=== PATIENT | female | born 1970 | race American Indian/Alaskan Native ===

== ENCOUNTER 2017-03-18 08:09 | Outpatient (CLI) | payer BC ==
--- NOTE | 2017-03-18 10:02 | Mammography Report ---
BILATERAL DIGITAL SCREENING MAMMOGRAM with CAD: 03/18/17 08:09:00 CLINICAL: Routine screening. COMPARISON:03/17/16 and 12/25/14 FINDINGS: The breasts are almost entirely fatty. No mass, architectural distortion or suspicious calcifications. IMPRESSION: No mammographic evidence of malignancy. BI-RADS CATEGORY: 2 -- Benign RECOMMENDATION: Routine mammographic screening in one year. COMMENT: Patient follow-up letters are generated by our [employer] application.
== END 2017-03-18 08:10 | disposition home or self-care (01) ==
LOC: SPVWC 08:09
PROVIDERS: ATTEND Internal Medicine
DX: Z12.31 Encounter for screening mammogram for malignant neoplasm of breast (principal)
CPT/HCPCS: 77067; G0202

== ENCOUNTER 2019-04-17 10:19 | Outpatient (CLI) | payer BC ==
--- NOTE | 2019-04-17 10:53 | Mammography Report ---
DIGITAL SCREENING MAMMOGRAM WITH CAD, 04/17/2019 INDICATION: Routine screening mammography. TECHNIQUE: Digital bilateral 2D mammography was obtained in the craniocaudal and mediolateral obliq ue projections. This examination was interpreted with the benefit of Computer-Aided Detection analysi s. COMPARISON: 03/29/2018 FINDINGS: Breast Density: There are scattered areas of fibroglandular density. There is no evidence of dominant mass, suspicious calcifications or architectural distortion in eithe r breast. IMPRESSION: No mammographic evidence of malignancy. Follow up recommendation: Routine yearly BI-RADS Category 1: Negative. A "normal" or negative report should not discourage follow up or biopsy of a clinically significant f inding. A written summary of these findings will be mailed to the patient. The patient will be entered into a mammography reporting system which will generate a reminder letter for the patient's next appointmen t at the appropriate interval. The [employer] recommends yearly mammograms starting at age 40 and continuing as l vanita as a woman is in good health. Breast MRI is recommended for women with an approximate 20-25% or greater lifetime risk of breast cancer, including women with a strong family history of breast or ova asael cancer or who have been treated for Hodgkin's disease. Signer Name: Brett Lebron MD Signed: 04/17/2019 10:49 AM Workstation Name: [id number]
== END 2019-04-17 10:20 | disposition home or self-care (01) ==
LOC: SPVWC 10:19
PROVIDERS: ATTEND Surgery
DX: Z12.31 Encounter for screening mammogram for malignant neoplasm of breast (principal)
CPT/HCPCS: 77067

== ENCOUNTER 2020-04-18 08:19 | Outpatient (CLI) | payer BC ==
--- NOTE | 2020-04-18 11:25 | Mammography Report ---
DIGITAL SCREENING MAMMOGRAM WITH CAD, 04/18/2020 INDICATION: Routine screening mammography. TECHNIQUE: Digital bilateral 2D mammography was obtained in the craniocaudal and mediolateral obliq ue projections. This examination was interpreted with the benefit of Computer-Aided Detection analysi s. COMPARISON: 04/17/2019. FINDINGS: Breast Density: The breasts are almost entirely fatty. There is no evidence of dominant mass, suspicious calcifications or architectural distortion in eithe r breast. IMPRESSION: Follow up recommendation: Routine yearly BI-RADS Category 1: Negative. A "normal" or negative report should not discourage follow up or biopsy of a clinically significant f inding. A written summary of these findings will be mailed to the patient. The patient will be entered into a mammography reporting system which will generate a reminder letter for the patient's next appointmen t at the appropriate interval. The [employer] recommends yearly mammograms starting at age 40 and continuing as l vanita as a woman is in good health. Breast MRI is recommended for women with an approximate 20-25% or greater lifetime risk of breast cancer, including women with a strong family history of breast or ova asael cancer or who have been treated for Hodgkin's disease. Signer Name: Ric Xiao MD Signed: 04/18/2020 11:21 AM Workstation Name: [id number]
== END 2020-04-18 08:20 | disposition home or self-care (01) ==
LOC: SPVWC 08:19
PROVIDERS: ATTEND Internal Medicine
DX: Z12.31 Encounter for screening mammogram for malignant neoplasm of breast (principal)
CPT/HCPCS: 77067

== ENCOUNTER 2021-03-16 18:13 | Emergency (ER) | payer BC ==
[2021-03-16] MEDS ORDERED: hydrALAZINE 25 MG TAB PO ONE (20:08)
[2021-03-16] MEDS ORDERED: ONDANSETRON 4 MG ODT TAB PO ONE (20:09)
--- NOTE | 2021-03-16 23:28 | Emergency Department Report ---
ED General Adult HPI - General Chief complaint: High BP Stated complaint: Elevated Blood Pressure Source: patient Mode of arrival: Ambulatory Limitations: No Limitations - History of Present Illness Initial comments: Patient is a 50-year-old -Serbian female with a history of hypertension who presents to the ED with significantly elevated blood pressure for the last 2 weeks after her medications were changed. Patient states that she had previously been taking carvedilol 12.5 mg twice a day but she asked her primary care physician to change to medication that she can take once a day. Patient states that she was started on losartan 40 mg daily but this has not controlled her blood pressure. Patient states that previously her blood pressure was well controlled on carvedilol 12.5 mg twice a day. Patient denies dizziness, syncope, chest pain, shortness of breath, generalized weakness, headache, nausea and vomiting, diaphoresis, back pain, abdominal pain, palpitations, fever and chills or change in vision. MD Complaint: Elevated blood pressure -: Sudden, week(s) (2) Location: head, chest Radiation: non-radiation Severity scale (0 -10): 0 Consistency: constant Improves with: none Worsens with: none Associated Symptoms: denies other symptoms. denies: confusion, chest pain, cough, diaphoresis, fever/chills, headaches, loss of appetite, malaise, nausea/vomiting, rash, seizure, shortness of breath, syncope, weakness, other Treatments Prior to Arrival: none - Related Data Previous Rx's Medication Instructions Recorded Last Taken Type carvediloL [Coreg] 12.5 mg PO Q12H #60 tablet 03/16/21 Unknown Rx Allergies Allergy/AdvReac Type Severity Reaction Status Date / Time bupropion HCl Allergy Hives Unverified 03/16/21 18:18 [From Wellbutrin] Sulfa (Sulfonamide Allergy Swelling Unverified 03/16/21 18:18 Antibiotics) ED Review of Systems ROS: Stated complaint: Elevated Blood Pressure Other details as noted in HPI Constitutional: other (Elevated blood pressure). denies: chills, fever Eyes: denies: eye pain, eye discharge, vision change ENT: denies: ear pain, throat pain Respiratory: denies: cough, shortness of breath, wheezing Cardiovascular: denies: chest pain, palpitations Endocrine: no symptoms reported Gastrointestinal: denies: abdominal pain, nausea, diarrhea Genitourinary: denies: urgency, dysuria, discharge Musculoskeletal: denies: back pain, joint swelling, arthralgia Skin: denies: rash, lesions Neurological: denies: headache, weakness, paresthesias Psychiatric: denies: anxiety, depression Hematological/Lymphatic: denies: easy bleeding, easy bruising ED Past Medical Hx - Past Medical History Hx Hypertension: Yes - Medications Home Medications: Home Medications Medication Instructions Recorded Confirmed Last Taken Type carvediloL [Coreg] 12.5 mg PO Q12H #60 tablet 03/16/21 Unknown Rx ED Physical Exam - General Limitations: No Limitations General appearance: alert, in no apparent distress - Head Head exam: Present: atraumatic, normocephalic, normal inspection - Eye Eye exam: Present: normal appearance, PERRL, EOMI Pupils: Present: normal accommodation - ENT ENT exam: Present: normal exam, normal orophraynx, mucous membranes moist, TM's normal bilaterally, normal external ear exam - Neck Neck exam: Present: normal inspection, full ROM - Respiratory Respiratory exam: Present: normal lung sounds bilaterally. Absent: respiratory distress, wheezes, rales, rhonchi, chest wall tenderness, accessory muscle use, decreased breath sounds - Cardiovascular Cardiovascular Exam: Present: regular rate, normal rhythm, normal heart sounds. Absent: systolic murmur, diastolic murmur, rubs, gallop - GI/Abdominal GI/Abdominal exam: Present: soft, normal bowel sounds. Absent: tenderness, guarding, rebound, hyperactive bowel sounds, hypoactive bowel sounds, organomegaly, mass - Extremities Exam Extremities exam: Present: normal inspection, full ROM, normal capillary refill - Back Exam Back exam: Present: normal inspection, full ROM. Absent: tenderness, CVA tenderness (R), CVA tenderness (L), muscle spasm, vertebral tenderness - Neurological Exam Neurological exam: Present: alert, oriented X3, CN II-XII intact, normal gait, reflexes normal - Psychiatric Psychiatric exam: Present: normal affect, normal mood - Skin Skin exam: Present: warm, dry, intact, normal color. Absent: rash ED Course Vital Signs 03/16/21 03/16/21 18:14 22:29 Temperature 98.5 F 98.9 F Pulse Rate 91 H 80 Respiratory 18 17 Rate Blood Pressure 220/114 167/79 [Right] O2 Sat by Pulse 98 100 Oximetry ED Medical Decision Making - Medical Decision Making This is a 50-year-old -Serbian female with a history of hypertension who presents to the ED with significantly elevated blood pressure for the last 2 weeks after her medications were changed. Patient states that she had previousl y been taking carvedilol 12.5 mg twice a day but she asked her primary care physician to change to medication that she can take once a day. Patient states that she was started on losartan 40 mg daily but this has not controlled her blood pressure. Patient states that previously her blood pressure was well controlled on carvedilol 12.5 mg twice a day. In the ED, patient is alert and oriented x3 and is not in any distress. Patient's blood pressure is significantly elevated in triage, 210/114. Patient however has no other symptoms other than poorly controlled hypertension. Patient was treated in the ED for uncontrolled hypertension with hydralazine 50 mg p.o. x1. Patient was observed in the ED for over 1 hour and when the blood pressure was rechecked it significantly improved. Patient was still symptomatic in the ED. Patient will discharge home on original blood pressure medication that she previously took, carvedilol 12.5 mg twice a day and advised to follow-up with her primary care physician in 3 to 5 days for reevaluation. Patient is advised return to the ED immediately if symptoms get worse. - Differential Diagnosis Uncontrolled hypertension; anxiety; Critical care attestation.: If time is entered above; I have spent that time in minutes in the direct care of this critically ill patient, excluding procedure time. ED Disposition Clinical Impression: Uncontrolled stage 2 hypertension Disposition: 01 HOME / SELF CARE / HOMELESS Is pt being admited?: No Does the pt Need Aspirin: No Condition: Stable Instructions: Hypertension (ED), Hypertension, Adult, [id number] Additional Instructions: Take medication as advised, drink plenty of fluids and follow-up with your primary care physician in 3 to 5 days for reevaluation. Return to the ED immediately if symptoms get worse. Prescriptions: carvediloL [Coreg] 12.5 mg PO Q12H #60 tablet Referrals: [facility] [Provider Group] - 3-5 Days Time of Disposition: 23:29 Print Language: CHADIAN
[2021-03-16 23:59] VITALS: BP 185/91
== END 2021-03-16 23:57 | disposition home or self-care (01) ==
LOC: ED 18:13
DX: I10 Essential (primary) hypertension (principal); Z88.2 Allergy status to sulfonamides; Z88.8 Allergy status to other drugs, medicaments and biological substances; Z79.899 Other long term (current) drug therapy
CPT/HCPCS: 99282; J3490; Q0162

== ENCOUNTER 2021-04-23 13:02 | Outpatient (CLI) | payer BC ==
--- NOTE | 2021-04-23 16:04 | Mammography Report ---
DIGITAL SCREENING MAMMOGRAM WITH CAD, 04/23/2021 CLINICAL INFORMATION / INDICATION: Routine screening mammography. SCREENING MAMMOGRAM TECHNIQUE: Digital bilateral 2D mammography was obtained in the craniocaudal and mediolateral obliqu e projections. This examination was interpreted with the benefit of Computer-Aided Detection analysis . COMPARISON: 11/30/2012 through 04/18/2020. FINDINGS: Breast Density: The breasts are almost entirely fatty. No dominant mass, suspicious calcifications, or architectural distortion in either breast. IMPRESSION: No mammographic evidence of malignancy. Follow up recommendation: Routine yearly BI-RADS Category 1: NEGATIVE A "normal" or negative report should not discourage follow up or biopsy of a clinically significant f inding. A written summary of these findings will be mailed to the patient. The patient will be entered into a mammography reporting system which will generate a reminder letter for the patient's next appointmen t at the appropriate interval. The [employer] recommends yearly mammograms starting at age 40 and continuing as l vanita as a woman is in good health. Breast MRI is recommended for women with an approximate 20-25% or greater lifetime risk of breast cancer, including women with a strong family history of breast or ova asael cancer or who have been treated for Hodgkin's disease. Signer Name: Cy Bartlett MD Signed: 04/23/2021 3:59 PM Workstation Name: [email or web address]
== END 2021-04-23 13:03 | disposition home or self-care (01) ==
LOC: SPVWC 13:02
PROVIDERS: ATTEND Internal Medicine
DX: Z12.31 Encounter for screening mammogram for malignant neoplasm of breast (principal)
CPT/HCPCS: 77067